=== PATIENT | female | born 1980 | race Caucasian/White ===

== ENCOUNTER 2016-10-24 10:24 | Emergency (ER) | payer OTHER ==
[2016-10-24 11:56] VITALS: BP 133/66
--- NOTE | 2016-10-24 12:04 | UC ---
UC General HPI - HPI Summary HPI Summary: Patient has had continual vaginal bleeding for 3 months, was placed on provera last week to reduce bleeding but her bleeding has increased, is going through a pad an hour and large clots, abdominal pain. is feeling chilled, fatiqued, and lightheaded. VS are stable. - History of Current Complaint Chief Complaint: UCGU Stated Complaint: PERSONAL Time Seen by Provider: 10/24/16 11:49 Hx Obtained From: Patient Onset/Duration: Sudden Onset, Lasting Weeks Timing: Constant Onset Severity: Moderate Current Severity: Severe Pain Intensity: 7 Associated Signs & Symptoms: Positive: Dizziness, Weakness - Allergy/Home Medications Allergies/Adverse Reactions: Allergies Allergy/AdvReac Type Severity Reaction Status Date / Time Sertraline [From Zoloft] Allergy Severe suicidal Verified 10/24/16 11:33 Sulfa Drugs Allergy Severe Anaphylatic Verified 10/24/16 11:33 Shock Bee Venom Allergy Swelling Verified 10/24/16 11:33 Latex Allergy Rash Verified 10/24/16 11:33 Home Medications: Home Medications Gabapentin CAP(*) [Neurontin 100 mg CAP(*)] 200 mg PO BID 10/24/16 [History Confirmed 10/24/16] medroxyPROGESTERone TAB* [Provera TAB*] 1 tab PO DAILY 10/24/16 [History Confirmed 10/24/16] PMH/Surg Hx/FS Hx/Imm Hx Previously Healthy: Yes Endocrine History Of: Denies: Diabetes Cardiovascular History Of: Reports: Cardiac Disorders - Hx heart murmur Denies: Hypertension, Pacemaker/ICD GI/ History Of: Denies: Renal Disease - Surgical History Surgical History: Yes Surgery Procedure, Year, and Place: Ear Tubes, 1979, [employer] [facility] [employer] [facility]. Right ovary removed 2014 - Family History Known Family History: Positive: Hypertension, Diabetes, Other - dyslipidemia father lung CA - Social History Alcohol Use: Rare Substance Use Type: None Smoking Status (MU): Former Smoker Type: Cigarettes Amount Used/How Often: 1/2 PPD Length of Time of Smoking/Using Tobacco: On and Off for 10 Years Have You Smoked in the Last Year: Yes When Did the Patient Quit Smoking/Using Tobacco: 06/2016 - Immunization History Most Recent Influenza Vaccination: May 2014 Review of Systems Skin: Other - dry Eyes: Negative ENT: Negative Respiratory: Negative Cardiovascular: Negative Gastrointestinal: Abdominal Pain Genitourinary: Negative Motor: Negative Neurovascular: Negative Musculoskeletal: Negative Neurological: Headache Psychological: Negative All Other Systems Reviewed And Are Negative: Yes Physical Exam Triage Information Reviewed: Yes Appearance: Ill-Appearing, Pain Distress, Obese Vital Signs: Initial Vital Signs Temp 98.9 F 10/24/16 11:34 Pulse 81 10/24/16 11:34 Resp 16 10/24/16 11:34 BP 133/66 10/24/16 11:34 Pulse Ox 98 10/24/16 11:34 Vital Signs Reviewed: Yes Eye Exam: Normal Eyes: Positive: Conjunctiva Clear ENT: Positive: Normal ENT inspection, Hearing grossly normal, Pharynx normal, TMs normal Dental Exam: Normal Neck exam: Normal Neck: Positive: Supple, Nontender, No Lymphadenopathy Respiratory Exam: Normal Respiratory: Positive: Chest non-tender, Lungs clear, Normal breath sounds Cardiovascular Exam: Normal Cardiovascular: Positive: RRR, No Murmur, Pulses Normal Abdominal Exam: Other - tender over the lower abdomen Abdomen Description: Positive: No Organomegaly, CVA Tenderness (R) - neg, CVA Tenderness (L) - neg Bowel Sounds: Positive: Present Musculoskeletal Exam: Normal Musculoskeletal: Positive: Strength Intact, ROM Intact, No Edema Neurological Exam: Normal Neurological: Positive: Alert, Muscle Tone Normal Psychological Exam: Normal Skin Exam: Normal Course/Dx - Course Course Of Treatment: hx obtained, exam performed, patient will be seen in ER at [facility] - Differential Dx - Multi-Symptom Provider Diagnoses: vaginal bleeding - Physician Notifications Discussed Patient Care With: Reed Meza NP Instructed by Provider To: MD Will See In ED Discharge - Discharge Plan Condition: Stable Disposition: TRANS HIGHER L OF CARE FAC
== END 2016-10-24 12:05 | disposition left against medical advice (07) ==
LOC: UCCORT 10:24
DX: N93.9 Abnormal uterine and vaginal bleeding, unspecified (principal); E66.9 Obesity, unspecified; Z87.891 Personal history of nicotine dependence; Z88.2 Allergy status to sulfonamides; Z88.8 Allergy status to other drugs, medicaments and biological substances
CPT/HCPCS: 99212; G0463

== ENCOUNTER 2017-11-15 15:57 | Emergency (ER) | payer BC, OTHER ==
[2017-11-15 16:13] VITALS: BP 131/67
--- NOTE | 2017-11-15 16:16 | UC ---
General HPI - HPI Summary HPI Summary: pt is c/o "palpitations" since yesterday. she states she gets them when she gets a uti. she denies frequency, urgency and burning with urination but does note some bladder "cramping". no cp, sob. states has seen cardiology for palpitations. she states " i have a valve the gives me extra beats once in a while". no fever, n/v/d. - History of Current Complaint Chief Complaint: UCGeneralIllness Stated Complaint: HEART PALPITATIONS Time Seen by Provider: 11/15/17 16:01 Hx Obtained From: Patient Hx Last Menstrual Period: 10/24/16 Timing: Constant Aggravating: nothing Alleviating: nothing Associated Signs & Symptoms: Negative: Abdominal Pain, Diarrhea, Fever, Nausea, Vomiting - Allergy/Home Medications Allergies/Adverse Reactions: Allergies Allergy/AdvReac Type Severity Reaction Status Date / Time sertraline [From Zoloft] Allergy Severe See Comment Verified 11/15/17 16:14 Sulfa (Sulfonamide Allergy Severe Anaphylatic Verified 11/15/17 16:14 Antibiotics) Shock bee venom protein (honey bee) Allergy Swelling Verified 11/15/17 16:14 latex Allergy Rash Verified 11/15/17 16:14 Home Medications: Home Medications Megestrol TAB* [Megace TAB*] 40 mg TID 11/15/17 [History Confirmed 11/15/17] PMH/Surg Hx/FS Hx/Imm Hx - Additional Past Medical History Additional PMH: PCOS, PALPITATIONS, CHRONIC PAIN Psychological History: Anxiety, Depression - Surgical History Surgical History: Yes Surgery Procedure, Year, and Place: Ear Tubes, 1979, [facility]. Right ovary removed 2014 - Family History Known Family History: Positive: Hypertension, Diabetes, Other - dyslipidemia father lung CA - Social History Alcohol Use: Rare Substance Use Type: None Smoking Status (MU): Former Smoker Type: Cigarettes Amount Used/How Often: 1/2 PPD Length of Time of Smoking/Using Tobacco: On and Off for 10 Years Have You Smoked in the Last Year: Yes When Did the Patient Quit Smoking/Using Tobacco: 06/2016 - Immunization History Most Recent Influenza Vaccination: May 2014 Vaccination Up to Date: Yes Review of Systems Constitutional: Negative Skin: Negative Eyes: Negative ENT: Negative Respiratory: Negative Cardiovascular: Palpitations Gastrointestinal: Other - BLADDER CRAMPS Genitourinary: Negative Motor: Negative Neurovascular: Negative Musculoskeletal: Negative Neurological: Negative Psychological: Negative Is Patient Immunocompromised?: No All Other Systems Reviewed And Are Negative: Yes Physical Exam Triage Information Reviewed: Yes Appearance: Well-Appearing Vital Signs Reviewed: Yes Eyes: Positive: Conjunctiva Clear ENT: Positive: Normal ENT inspection Neck: Positive: Supple, Nontender, No Lymphadenopathy Respiratory: Positive: Lungs clear, Normal breath sounds Cardiovascular: Positive: RRR, No Murmur, Pulses Normal Abdomen Description: Positive: Nontender, No Organomegaly, Soft Bowel Sounds: Positive: Present Musculoskeletal: Positive: No Edema Neurological: Positive: Alert Psychological: Positive: Age Appropriate Behavior Skin Exam: Normal Diagnostics - EKG Cardiac Rate: NL Cardiac Rhythm: Sinus: Normal Ectopy: None ST Segment: Normal Course/Dx - Course Course Of Treatment: EKG=UNREMARKABLE PLUS PT HAS BEEN EVALUATED BY CARDIOLOGY FOR HER PALPITATIONS AND NO TX INDICATED. U/A= IS + FOR LEUKOCYTES, CULTURE IS PENDING. WILL TX FOR PRESUMPTIVE UTI. - Differential Dx - Multi-Symptom Provider Diagnoses: UTI, PALPITATIONS Discharge - Discharge Plan Condition: Stable Disposition: HOME Prescriptions: Nitrofurantoin Macrocrystal [Nitrofurantoin] 100 mg PO BID #10 capsule Patient Education Materials: Heart Palpitations (ED), Urinary Tract Infection in Women (ED) Referrals: Rianna Acuña MD [Primary Care Provider] - 7 Days
== END 2017-11-15 16:34 | disposition home or self-care (01) ==
LOC: UCCORT 15:57
DX: N39.0 Urinary tract infection, site not specified (principal); R00.2 Palpitations; Z88.2 Allergy status to sulfonamides; Z88.8 Allergy status to other drugs, medicaments and biological substances; Z91.030 Bee allergy status; Z91.040 Latex allergy status; Z87.891 Personal history of nicotine dependence
CPT/HCPCS: 81003; 87086; 93005; 99212; G0463

== ENCOUNTER 2018-02-13 19:17 | Emergency (ER) | payer BC ==
[2018-02-13 19:42] VITALS: BP 150/85
--- NOTE | 2018-02-13 19:51 | UC ---
Cardiac HPI - HPI Summary HPI Summary: Pt c/o gradual onset of worsening chest pain/tightness. Pt staes that she has hx of PAC, generalized anxiety disorder and migraones. Pt states she woke with a migraine this morning, took 2 excedrin tablets, drank two cups of coffee and noted that head ache did not improve, and chest pain nad tightness was worsening , which she reports exacerbated her anxiety. Pt then reports she began to feel nauseous. - History of Current Complaint Chief Complaint: UCChestPain Stated Complaint: CHEST PAIN Time Seen by Provider: 02/13/18 19:39 Hx Obtained From: Patient Hx Last Menstrual Period: 10/24/16 Onset/Duration: Gradual Onset, Lasting Hours Initial Severity: Moderate Current Severity: Mild Pain Intensity: 2 Chest Pain Location: Upper Sternal Character: Fluttering, Dull/Aching, Tightness Aggravating Factor(s): Caffeine, Medications Alleviating Factor(s): Medication - gabapentin Associated Signs & Symptoms: Positive: Chest Pain, Anxiety, Headaches, Palpitations Related History: Similar Episode/Dx as - PAC, anxiety and migraine TOLENTINO - Risk Factors Pulmonary Embolism Risk Factors: Smoking Cardiac Risk Factors: Smoking Atrial Fibrillation: Negative TAD Risk Factors: Smoking AMI/ACS Risk Factors: Obesity, Smoking - Allergy/Home Medications Allergies/Adverse Reactions: Allergies Allergy/AdvReac Type Severity Reaction Status Date / Time sertraline [From Zoloft] Allergy Severe See Comment Verified 02/13/18 19:42 Sulfa (Sulfonamide Allergy Severe Anaphylatic Verified 02/13/18 19:42 Antibiotics) Shock bee venom protein (honey bee) Allergy Swelling Verified 02/13/18 19:42 latex Allergy Rash Verified 02/13/18 19:42 Home Medications: Home Medications Aspirin [Aspirin Childrens 81 MG] 81 mg PO DAILY 02/13/18 [History Confirmed ] Aspirin/Acetaminophen/Caffeine [Excedrin Extra Strength Caplet] 2 each PO DAILY 02/13/18 [History Confirmed 02/13/18] PMH/Surg Hx/FS Hx/Imm Hx Previously Healthy: Yes Cardiovascular History: Other - PAC Other Cardiovascular History: PAC Psychological History: Anxiety - Surgical History Surgical History: Yes Surgery Procedure, Year, and Place: Ear Tubes, 1979, [employer] [facility] [employer] [facility]. Right ovary removed 2014 - Family History Known Family History: Positive: Hypertension, Diabetes, Other - dyslipidemia father lung CA - Social History Occupation: Employed Full-time Lives: With Family Alcohol Use: Rare Substance Use Type: None Smoking Status (MU): Former Smoker Type: Cigarettes Amount Used/How Often: 1/2 PPD Length of Time of Smoking/Using Tobacco: On and Off for 10 Years Have You Smoked in the Last Year: Yes When Did the Patient Quit Smoking/Using Tobacco: 06/2016 - Immunization History Most Recent Influenza Vaccination: May 2014 Vaccination Up to Date: Yes Review of Systems Constitutional: Fatigue Skin: Negative Eyes: Negative ENT: Negative Respiratory: Negative Cardiovascular: Palpitations, Chest Pain Gastrointestinal: Negative Genitourinary: Negative Motor: Negative Neurovascular: Negative Musculoskeletal: Negative Neurological: Headache Psychological: Anxious Is Patient Immunocompromised?: No All Other Systems Reviewed And Are Negative: Yes Physical Exam Triage Information Reviewed: Yes Appearance: Well-Appearing, Obese Vital Signs: Initial Vital Signs Temp 98.9 F 02/13/18 19:32 Pulse 82 02/13/18 19:32 Resp 17 02/13/18 19:32 BP 150/85 02/13/18 19:32 Pulse Ox 100 02/13/18 19:32 Vital Signs Reviewed: Yes Eye Exam: Normal ENT Exam: Normal Dental Exam: Normal Neck exam: Normal Respiratory Exam: Normal Respiratory: Positive: Normal breath sounds, No respiratory distress Cardiovascular Exam: Normal Cardiovascular: Positive: RRR Musculoskeletal Exam: Normal Neurological Exam: Normal Psychological Exam: Normal Skin Exam: Normal - Assessment/Plan Course Of Treatment: I discussed with the pt the need to follow up with her PCP and/or direct of real estate as needed. She verbalized understanding and agreed to plan of care. - Differential Diagnoses - Chest Pain Differential Diagnosis/HQI/PQRI: Acute PR, ACS - Differential Diagnoses - Hypertension Differential Diagnosis/HQI PQRI: Angina - Differential Diagnoses - Palpitations Differential Diagnosis/HQI/PQRI: Panic Disorder, Other - migraine - Clinical Impression Provider Diagnoses: Migraine. anxiety exacerbation. chest pain Discharge - Sign-Out/Discharge Documenting (check all that apply): Discharge/Admit/Transfer - Discharge Plan Condition: Stable Disposition: HOME Prescriptions: Ondansetron ODT TAB* [Zofran 4 MG Odt TAB*] 4 mg PO Q6H PRN #20 tab.odt PRN Reason: Nausea Patient Education Materials: Chest Pain (ED), Anxiety (ED) Referrals: Rianna Acuña MD [Primary Care Provider] - If Needed Additional Instructions: Please follow up with your PCP and your direct of real estate as needed. - Billing Disposition and Condition Condition: STABLE Disposition: Home
== END 2018-02-13 19:59 | disposition home or self-care (01) ==
LOC: UCCORT 19:17
DX: R07.9 Chest pain, unspecified (principal); G43.909 Migraine, unspecified, not intractable, without status migrainosus; F41.8 Other specified anxiety disorders
CPT/HCPCS: 93005; 99212; G0463

== ENCOUNTER 2018-07-01 08:20 | Emergency (ER) | payer SELFPAY ==
[2018-07-01 08:40] VITALS: BP 154/79
--- NOTE | 2018-07-01 08:51 | ED ---
Shortness of Breath - HPI Summary HPI Summary: 37 yo WF c/o SOB associated with cough and pleuritic CP x 1 week, started with URI but progressively worsened. - History of Current Complaint Chief Complaint: UCRespiratory Time Seen by Provider: 07/01/18 08:34 Hx Obtained From: Patient Onset/Duration: Gradual Onset, Lasting Days, Still Present, Worse Since Current Severity: Severe Aggrevating Factors: Deep Breaths Associated Signs & Symptoms: Cough (Nonproductive) - Allergy/Home Medications Allergies/Adverse Reactions: Allergies Allergy/AdvReac Type Severity Reaction Status Date / Time sertraline [From Zoloft] Allergy Severe See Comment Verified 07/01/18 08:26 Sulfa (Sulfonamide Allergy Severe Anaphylatic Verified 07/01/18 08:26 Antibiotics) Shock bee venom protein (honey bee) Allergy Swelling Verified 07/01/18 08:26 latex Allergy Rash Verified 07/01/18 08:26 Home Medications: Home Medications Escitalopram Oxalate [Lexapro 20 mg] 20 mg PO DAILY 07/01/18 [History Confirmed 07/01/18] Phenylephrine/Dm/Acetaminop/GG [Mucinex Fast-Max Sev Cold Cplt] 1 tab PO PRN 10/17 [History] Propranolol TAB* [Inderal TAB*] 20 mg PO BID 07/01/18 [History Confirmed ] PMH/Surg Hx/FS Hx/Imm Hx Previously Healthy: Yes Endocrine/Hematology History: Denies: Hx Diabetes Cardiovascular History: Denies: Hx Hypertension, Hx Pacemaker/ICD History: Denies: Hx Renal Disease Sensory History: Denies: Hx Hearing Aid Psychiatric History: Denies: Hx Panic Disorder - Surgical History Surgery Procedure, Year, and Place: Ear Tubes, 1979, [facility] [facility]. Right ovary removed 2014. D&C Infectious Disease History: No Infectious Disease History: Denies: Traveled Outside the [place] in Last 30 Days - Family History Known Family History: Positive: Hypertension, Diabetes, Other - dyslipidemia father lung CA - Social History Alcohol Use: Rare Substance Use Type: Reports: None Smoking Status (MU): Light Every Day Tobacco Smoker Type: eCigarettes Amount Used/How Often: 1/2 PPD Length of Time of Smoking/Using Tobacco: On and Off for 10 Years Have You Smoked in the Last Year: Yes Review of Systems Constitutional: Negative Eyes: Negative ENT: Negative Cardiovascular: Negative Positive: Shortness Of Breath, Cough Gastrointestinal: Negative Genitourinary: Negative Musculoskeletal: Negative Skin: Negative All Other Systems Reviewed And Are Negative: Yes Physical Exam - Summary Physical Exam Summary: Vital Signs Reviewed: Yes Appearance: Positive: Well-Appearing Skin: Positive: Warm Head/Face: Positive: Normal Head/Face Inspection Eyes: Positive: Normal, EOMI, SENG ENT: Positive: Normal ENT inspection Neck: Positive: Supple Respiratory/Lung Sounds: Positive: Coarse BS B/L, faint diffuse wheezing B/B Cardiovascular: Positive: Normal, RRR, S1, S2 Abdomen Vital Signs On Initial Exam: Initial Vitals Temp Pulse Resp BP Pulse Ox 36.6 C 81 24 154/79 94 07/01/18 08:29 07/01/18 08:29 07/01/18 08:29 07/01/18 08:29 07/01/18 08:29 Diagnostics - Vital Signs Vital Signs Temp Pulse Resp BP Pulse Ox 07/01/18 08:29 36.6 C 81 24 154/79 94 - Laboratory Lab Statement: Any lab studies that have been ordered have been reviewed, and results considered in the medical decision making process. Course/Dx - Course Assessment/Plan: CXR - B/L patchy infiltrates with retrocardiac infiltrates. Rpcephin 1g in UC, then PO abx x 7 days - Diagnoses Provider Diagnoses: PNA (pneumonia) Discharge - Sign-Out/Discharge Documenting (check all that apply): Patient Departure All imaging exams completed and their final reports reviewed: Yes - Discharge Plan Condition: Stable Disposition: HOME Prescriptions: Cefuroxime 500 MG(NF) 500 mg PO BID 7 Days #14 tab Patient Education Materials: Pneumonia (ED) Forms: *Work Release Referrals: Rianna Acuña MD [Primary Care Provider] - - Billing Disposition and Condition Condition: STABLE Disposition: Home
--- NOTE | 2018-07-01 08:56 | RAD ---
Indication: Shortness of breath. 2 views of the chest are reviewed. Dual-energy PA views were obtained. Airspace disease in left upper lobe and left base is noted consistent with left upper lobe and left lower lobe pneumonia. No prior chest x-ray is available for review. IMPRESSION: Left upper lobe and left basilar pneumonia is present.
[2018-07-01] MEDS ORDERED: cefTRIAXone VIAL(*) 1,000 MG VIAL IM ONE (10:03)
[2018-07-01] MEDS ORDERED: Lidocaine 1% MPF* 2 ML VIAL INJ ONE (10:04)
== END 2018-07-01 10:48 | disposition home or self-care (01) ==
LOC: UCCORT 08:20
DX: J18.9 Pneumonia, unspecified organism (principal); Z88.1 Allergy status to other antibiotic agents
CPT/HCPCS: 71046; 96372; 99212; G0463; J0696

== ENCOUNTER 2018-11-12 10:31 | Emergency (ER) | payer BC ==
[2018-11-12 11:31] VITALS: BP 142/71
--- NOTE | 2018-11-12 11:51 | UC ---
Respiratory Complaint HPI - HPI Summary HPI Summary: 37 yo female with nasal congestion/post nasal drip and facial pressure x 10 days no f.c no n.v.d no CP or SOB - History of Current Complaint Chief Complaint: UCGeneralIllness Stated Complaint: SINUSES,COUGH Time Seen by Provider: 11/12/18 11:40 Hx Obtained From: Patient Hx Last Menstrual Period: DOES NOT HAVE PERIODS, IS ON MEGACE Onset/Duration: Gradual Onset, Lasting Days Timing: Constant Severity Initially: Mild Severity Currently: Moderate Pain Intensity: 0 Pain Scale Used: 0-10 Numeric Character: Cough: Nonproductive Aggravating Factors: Nothing Alleviating Factors: Nothing Associated Signs And Symptoms: Positive: Nasal Congestion, Hoarseness, Sinus Discomfort - Allergies/Home Medications Allergies/Adverse Reactions: Allergies Allergy/AdvReac Type Severity Reaction Status Date / Time sertraline [From Zoloft] Allergy Severe See Comment Verified 07/01/18 08:26 Sulfa (Sulfonamide Allergy Severe Anaphylatic Verified 07/01/18 08:26 Antibiotics) Shock bee venom protein (honey bee) Allergy Swelling Verified 07/01/18 08:26 latex Allergy Rash Verified 07/01/18 08:26 Home Medications: Home Medications Omeprazole 20 mg PO DAILY 11/12/18 [History Confirmed 11/12/18] PMH/Surg Hx/FS Hx/Imm Hx Previously Healthy: Yes Cardiovascular History: Hypertension Psychological History: Anxiety, Depression - Surgical History Surgical History: Yes Surgery Procedure, Year, and Place: Ear Tubes, 1979, [facility]. Right ovary removed 2014. D&C - Family History Known Family History: Positive: Hypertension, Diabetes, Other - dyslipidemia father lung CA - Social History Alcohol Use: Rare Substance Use Type: None Smoking Status (MU): Light Every Day Tobacco Smoker Type: eCigarettes Amount Used/How Often: 1/2 PPD Length of Time of Smoking/Using Tobacco: On and Off for 10 Years Have You Smoked in the Last Year: Yes When Did the Patient Quit Smoking/Using Tobacco: 06/2016 - Immunization History Most Recent Influenza Vaccination: May 2014 Vaccination Up to Date: Yes Review of Systems All Other Systems Reviewed And Are Negative: Yes Constitutional: Positive: Negative Skin: Positive: Negative Eyes: Positive: Negative ENT: Positive: Nasal Discharge, Sinus Congestion Respiratory: Positive: Cough Cardiovascular: Positive: Negative Gastrointestinal: Positive: Negative Genitourinary: Positive: Negative Motor: Positive: Negative Neurovascular: Positive: Negative Musculoskeletal: Positive: Negative Neurological: Positive: Negative Psychological: Positive: Negative Physical Exam Triage Information Reviewed: Yes Appearance: Well-Appearing, No Pain Distress, Well-Nourished Vital Signs: Initial Vital Signs Temp 97.8 F 11/12/18 11:27 Pulse 82 11/12/18 11:27 Resp 20 11/12/18 11:27 BP 142/71 11/12/18 11:27 Pulse Ox 98 11/12/18 11:27 Vital Signs Reviewed: Yes Eyes: Positive: Conjunctiva Clear ENT: Positive: Hearing grossly normal, Nasal congestion, Nasal drainage, Sinus tenderness. Negative: Tonsillar swelling, Tonsillar exudate, Trismus, Muffled voice, Hoarse voice Neck: Positive: Supple, Nontender, No Lymphadenopathy Respiratory: Positive: Lungs clear, Normal breath sounds, No respiratory distress, No accessory muscle use Cardiovascular: Positive: RRR, No Murmur Musculoskeletal: Positive: ROM Intact, No Edema Neurological: Positive: Alert Psychological Exam: Normal Skin Exam: Normal Respiratory Course/Dx - Differential Dx/Diagnosis Provider Diagnosis: Sinusitis Discharge - Sign-Out/Discharge Documenting (check all that apply): Patient Departure All imaging exams completed and their final reports reviewed: No Studies - Discharge Plan Condition: Stable Disposition: HOME Prescriptions: Amoxicillin/Clavulanate TAB* [Augmentin TAB 875*] 875 mg PO BID #20 tab Fluticasone NASAL SPRAY 50MCG* [Flonase NASAL SPRAY 50MCG*] 2 spray BOTH NARES BID #1 btl Patient Education Materials: Sinusitis (ED) Referrals: HANNA Allred [Primary Care Provider] - 6 Days (if not better) - Billing Disposition and Condition Condition: STABLE Disposition: Home
== END 2018-11-12 11:55 | disposition home or self-care (01) ==
LOC: UCCORT 10:31
DX: J32.9 Chronic sinusitis, unspecified (principal); I10 Essential (primary) hypertension; F17.290 Nicotine dependence, other tobacco product, uncomplicated; Z88.8 Allergy status to other drugs, medicaments and biological substances; Z88.2 Allergy status to sulfonamides; Z91.030 Bee allergy status; Z91.040 Latex allergy status
CPT/HCPCS: 99212; G0463

== ENCOUNTER 2019-01-06 16:35 | Emergency (ER) | payer BC ==
--- OUTSIDE RECORDS SUMMARY | 2019-01-06 17:15 | XMS REPORT | Continuity of Care Document ---
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 Melly Chen MD Primary Care Physician Unavailable Payers Date Identification Numbers Payment Provider Subscriber Policy Number: [id number] Dinora Clement PayID: [id number] [place] [address] Expires: 2018 Policy Number: [id number] Dinora Clement PayID: [id number] [place] [address] Advance Directives Description No Information Available Problems Description No Information Family History Date Family Member(s) Observation Comments Father due to Unknown Causes () Social History Type Date Description Comments Sex Unknown Marital Status Lives With Diet Patient follows no dietary restrictions 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 Hand Dominance Right-handed ADL's/IADL's Dependent with all ADL's Abuse No history of abuse Tobacco Use Start: Unknown End: Quit Unknown Smoking Status Reviewed: 12/29/18 Quit ETOH Use Denies alcohol use Tobacco Use Start: Unknown End: Patient is a former smoker Unknown Recreational Drug Use Denies Drug Use Tattoo/Piercing Tattoo Allergies, Adverse Reactions, Alerts Active Allergies Reaction Severity Comments Date Sulfa Drugs 05/27/2015 Zoloft 05/27/2015 Bee Sting 05/27/2015 Medications Active Medications SIG Qnty Indications Ordering Date Provider Escitalopram Oxalate Escitalopram Oxalate 30tabs Unknown 06/12/2018 20 MG Tabs 20mg Tablets Propranolol HCL Propranolol HCL 10 MG 60tabs Unknown 02/21/2018 10mg Tabs Tablets Cyclobenzaprine HCL Cyclobenzaprine HCL 45tabs Unknown 12/11/2016 10 MG Tabs 10mg Tablets Folic Acid 1 by mouth every day Unknown 800mcg Tablets Megestrol Acetate tid Unknown 40mg Tablets Cephalexin Unknown 500mg Capsules Gabapentin 1 by mouth three Unknown 300mg times a day Capsules Cyclobenzaprine HCL 1 by mouth three Unknown times a day as needed 10mg Tablets muscle spasms Ferrous Fumarate take one pill once Unknown daily with vitamin c 324(106Fe) mg Tablets History Medications Metformin HCL 1 by mouth tid Unknown - Unknown 500mg Tablets Vitamin D3 1 by mouth every day Unknown - 02/07/2016 5000Unit Capsules Vitamin B6 1 by mouth every day Unknown - Unknown 200mg Tablets Vitamin B12 by mouth every day Unknown - Unknown 500mcg Tablets Medications Administered in Office Medication SIG Qnty Indications Ordering Provider Date Depomedrol 40mg/1cc Vera Mondragon MD 12/29/2018 (methylprednisolone acetate) Injection Depomedrol 40mg/1cc Vera Mondragon MD 12/29/2018 (methylprednisolone acetate) Injection Immunizations Description No Information Available Vital Signs Date Vital Result Comment 12/29/2018 8:46am BP Systolic 130 mmHg BP Diastolic 85 mmHg Body Temperature 98.3 F Heart Rate 83 /min Height 69 inches 5'9" Weight 368.00 lb BMI (Body Mass Index) 54.3 kg/m2 BSA (Body Surface Area) 2.68 m2 [place] body weight in kilograms 66 kg O2 % BldC Oximetry 96 % 08/20/2017 1:30pm BP Systolic Sitting Right Arm 122 mmHg BP Diastolic Sitting Right Arm 64 mmHg Heart Rate 76 /min Respiratory Rate 18 /min Height 69.0 inches 5'9" Weight 353.00 lb BMI (Body Mass Index) 52.1 kg/m2 BSA (Body Surface Area) 2.63 m2 [place] body weight in kilograms 66 kg 02/07/2016 8:54am BP Systolic 140 mmHg BP Diastolic 82 mmHg Heart Rate 80 /min Height 69.0 inches 5'9" Weight 363.00 lb BMI (Body Mass Index) 53.6 kg/m2 BSA (Body Surface Area) 2.66 m2 [place] body weight in kilograms 66 kg 05/29/2015 8:53am BP Systolic Sitting Right Arm 144 mmHg BP Diastolic Sitting Right Arm 90 mmHg Heart Rate 76 /min Respiratory Rate 16 /min Height 69 inches 5'9" Weight 390.00 lb BMI (Body Mass Index) 57.6 kg/m2 BSA (Body Surface Area) 2.74 m2 Results Test Date Facility Test Result H/L Range Note Xray 12/29/2018 [facility] - Orthopedic RMP, Knee, RT, < pending> [address] [facility] [address] (2 [phone] view) Lab Report: 07/09/2018 N2N/CCD Import Mean Platelet 9.5 fL 8.9-12.4 CBC Volume Platelet Count 482 10*3/mm3 High 155-360 Mean Corpuscular HGB Conc 31.1 g/dL 30.8-34.3 Mean Corpuscular HGB 26.8 pg 25.9-32.7 Mean Cell Volume 86.3 fL 80.9-99.0 Hematocrit 44.7 % 36.0-46.1 Hemoglobin 13.9 g/dL 11.6-15.8 Red Blood Count 5.18 M/Ul 3.90-5.40 White Blood Count 13.6 10*3/mm3 High 3.1-10.7 Lab Report: 07/07/2018 N2N/CCD Import Gram Stain Rare Gram Pos Respiratory Culture Bacilli Suggestive W/Gram St Of Diptheroids Lab Report: [facility] 07/07/2018 N2N/CCD Import Eos # 0.00 10*3/uL 0.0-0.5 W/Automated Diff Eo% 0.0 % 0.0-6.6 [place] % 5.3 % 4.3-13.2 Lymph % 12.9 % Low 20.0-42.0 Neut% 81.6 % High 40.4-72.8 Mean Platelet Volume 9.4 fL 8.9-12.4 Red Cell Distri Width SD 41.8 fL 3-47 Platelet Count 336 10*3/mm3 155-360 Mean Corpuscular HGB Conc 32.2 g/dL 30.8-34.3 Mean Corpuscular HGB 27.3 pg 25.9-32.7 Mean Cell Volume 84.9 fL 80.9-99.0 Hematocrit 41.0 % 36.0-46.1 Hemoglobin 13.2 g/dL 11.6-15.8 Red Blood Count 4.83 M/Ul 3.90-5.40 White Blood Count 8.2 10*3/mm3 3.1-10.7 Lab Report: Ua RFX 07/06/2018 N2N/CCD Import Urine Leuk Negative Negative Micro Culture II Esterase Urine Nitrite - Dipstick Negative Negative Urine Urobilinogen - Dipstick 0.2 E.U./DL 0.2-1.0 Urine Blood Negative Negative Urine Specific [place] 1.010 1.010-1.030 Urine Ketone Trace High Negative Urine Bilirubin - Dipstick Negative Negative Urine Glucose - Dipstick Negative Negative Urine Color Yellow Yellow Lab Report: CBS 06/24/2018 N2N/CCD Import Hemoglobin 5.0 % 4.0-5.6 W/Diff, CMP, A1c/Hemoglobin.total in Lipid Panel, Blood TSH, A1c TSH (Thyroid Stimulating Horm) 1.72 u[iU]/mL 0.34-5.60 Cholesterol in LDL [Mass/volume] in Serum or Plasma 126 mg/dL HDL Cholesterol 43.9 mg/dL Cholesterol 188 mg/dL Triglycerides 89 mg/dL Egfr 90.1 (?) >60 Egfr Non- 74.5 (?) >60 Ast 11 U/L Low 13-39 Alt 9 U/L 7-52 Alkaline Phosphatase 79 U/L 34-104 Total Bilirubin 0.30 mg/dL 0.2-1.0 Albumin/Globulin Ratio 1.6 1-3 Globulin 2.5 2-4 Albumin 4.0 g/dL 3.2-5.2 Total Protein 6.5 g/dL 6.4-8.9 Calcium 9.2 mg/dL 8.6-10.3 BUN/Creatinine Ratio 21.2 High 8-20 Creatinine 0.85 mg/dL 0.51-0.95 Blood Urea Nitrogen 18 mg/dL 6-24 Co2 Carbon Dioxide 23 mmol/L 22-32 Chloride 109 mmol/L 101-111 Potassium 4.2 mmol/L 3.5-5.0 Sodium 140 mmol/L 135-145 Mean Platelet Volume 7.9 Um3 7.4-10.4 Platelet Count 294 10 3/Ul 150-450 Red Cell Distribution Width 14 % 10.5-15 Mean Corpuscular HGB Conc 33 g/dL 31-36 Mean Corpuscular Hemoglobin 28 pg 27-31 Mean Corpuscular Volume 84 fL 80-97 Hematocrit 45 % 35-47 Hemoglobin 14.9 g/dL 12.0-16.0 Red Blood Count 5.33 10 6/Ul 4.00-5.40 White Blood Count 9.5 10 3/Ul 3.5-10.8 Nocturnal Oximetry 09/03/2017 [facility] Low Oximetry 85 % Low 93-98 [address] [place] [address] [phone] Fio2 21 N 21-100 Heart Rate 96 BPM Duration Of Study 440 MINUTES Total Time Below 88% 0.6 MINUTES Continuous Oximetry 09/02/2017 [facility] Oximetry 98 % N 93-98 [address] [place] [address] [phone] Fio2 21 N 21-100 Heart Rate 116 BPM Patient Status RESTING Office Visit: Ov: uti check 08/27/2017 N2N/CCD Import Urinalysis 1.020 Urinalysis 5.0 Urinalysis negative Urinalysis negative Urinalysis negative Urinalysis negative Urinalysis negative Urinalysis negative Urinalysis negative Urinalysis yellow Serum or plasma 08/12/2017 N2N/CCD Import Serum or plasma 10 Low 15-37 aspartate aspartate aminotransferase aminotransferase measure measurement (enzymatic activity/volume) Serum or plasma 08/12/2017 N2N/CCD Import Serum or plasma 9.0 8.5-10.1 calcium measurement calcium (mass/volume) measurement (mass/volume) Serum or plasma 08/12/2017 N2N/CCD Import Serum or plasma 92 26-192 creatine kinase creatine kinase measurement (enzym measurement (enzymatic activity/volume) Serum or plasma 08/12/2017 N2N/CCD Import Serum or plasma 0.8 0.6-1.3 creatinine creatinine measurement measurement (mass/volum (mass/volume) Serum or plasma 08/12/2017 N2N/CCD Import Serum or plasma 87 74-106 glucose measurement glucose (mass/volume) measurement (mass/volume) Serum or plasma 08/12/2017 N2N/CCD Import Serum or plasma 7.6 6.4-8.2 protein measurement protein (mass/volume) measurement (mass/volume) Serum or plasma 08/12/2017 N2N/CCD Import Serum or plasma 83 45-117 alkaline alkaline phosphatase phosphatase measurement ( measurement (enzymatic activity/volume) Serum or plasma 08/12/2017 N2N/CCD Import Serum or plasma 3.8 3.4-5.0 albumin measurement albumin (mass/volume) measurement (mass/volume) Serum carbon 08/12/2017 N2N/CCD Import Serum carbon 23 21-32 dioxide measurement dioxide measurement RDW RBC Auto-Rto 08/12/2017 N2N/CCD Import RDW RBC Auto-Rto 17.1 High 11.7-14.4 RDW RBC Auto 08/12/2017 N2N/CCD Import RDW RBC Auto 49.2 High 3-47 Prot Ur 08/12/2017 N2N/CCD Import Prot Ur Negative Negative Strip.auto-mCnc Strip.auto-mCnc Potassium 08/12/2017 N2N/CCD Import Potassium 4.0 3.5-5.1 SerPl-sCnc SerPl-sCnc Serum or plasma 08/12/2017 N2N/CCD Import Serum or plasma 0.3 0.2-1.0 total bilirubin total bilirubin measurement (mass/ measurement (mass/volume) Serum or plasma 08/12/2017 N2N/CCD Import Serum or plasma 14 7-18 urea nitrogen urea nitrogen measurement measurement (mass/vo (mass/volume) Serum sodium 08/12/2017 N2N/CCD Import Serum sodium 141 136-145 measurement measurement Specific gravity of 08/12/2017 N2N/CCD Import Specific gravity 1.010 1.010-1.03 Urine by Automated of Urine by 0 test strip Automated test strip Urine appearance 08/12/2017 N2N/CCD Import Urine appearance Clear Clear determination determination Urine glucose 08/12/2017 N2N/CCD Import Urine glucose Negative Negative measurement by measurement by automated test automated test strip strip (mass/volume) Urine hemoglobin 08/12/2017 N2N/CCD Import Urine hemoglobin Large High Negative detection by detection by automated test automated test strip strip Urine total 08/12/2017 N2N/CCD Import Urine total Negative Negative bilirubin detection bilirubin by automated test detection by automated test strip Urobilinogen Ur 08/12/2017 N2N/CCD Import Urobilinogen Ur 0.2 0.2-1.0 Strip-aCnc Strip-aCnc WBC # Bld Auto 08/12/2017 N2N/CCD Import WBC # Bld Auto 10.6 3.1-10.7 pH Ur Strip.auto 08/12/2017 N2N/CCD Import pH Ur Strip.auto 6.5 6.5-7.5 Lab Report: 08/12/2017 N2N/Network Chemistry Import Troponin-I < 0.015 Urinalysis With ng/mL Microscopic, Comprehen SGPT/Alt 15 U/L 12-78 Sgot/Ast 10 U/L Low 15-37 Bilirubin,Total 0.3 mg/dL 0.2-1.0 Alb/Glob 1.0 ratio Globulin 3.8 g/dL 1.9-4.3 Albumin 3.8 g/dL 3.4-5.0 Total Protein 7.6 g/dL 6.4-8.2 Calcium 9.0 mg/dL 8.5-10.1 Carbon Dioxide 23 mmol/L 21-32 Chloride 111 mmol/L High 98-107 Potassium 4.0 mmol/L 3.5-5.1 Sodium 141 mmol/L 136-145 BUN/Creat 17.5 ratio If >60 >60 Glom Filtration Rate, Estimate >60 mL/min >60 Creatinine 0.8 mg/dL 0.6-1.3 BUN 14 mg/dL 7-18 Urine Leuk Esterase Moderate Abnormal Negative Urine Nitrite - Dipstick Negative Negative Urine Urobilinogen - Dipstick 0.2 E.U./DL 0.2-1.0 Urine Blood Large Abnormal Negative Urine Specific [place] 1.010 1.010-1.030 Urine Ketone Negative Negative Urine Bilirubin - Dipstick Negative Negative Urine Glucose - Dipstick Negative Negative Urine Color Yellow Yellow Lab Report: CBS W/Automated 08/12/2017 N2N/Network Chemistry Import Eos # 0.30 10*3/uL 0.0-0.5 Diff Eo% 2.8 % 0.0-6.6 [place] % 7.1 % 4.3-13.2 Lymph % 27.9 % 20.0-42.0 Neut% 61.7 % 40.4-72.8 Mean Platelet Volume 10.1 fL 8.9-12.4 Red Cell Distri Width SD 49.2 fL High 3-47 Platelet Count 358 10*3/mm3 155-360 Mean Corpuscular HGB Conc 32.9 g/dL 30.8-34.3 Mean Corpuscular HGB 25.9 pg 25.9-32.7 Mean Cell Volume 78.8 fL Low 80.9-99.0 Hematocrit 42.3 % 36.0-46.1 Hemoglobin 13.9 g/dL 11.6-15.8 Red Blood Count 5.37 M/Ul 3.90-5.40 White Blood Count 10.6 10*3/mm3 3.1-10.7 Automated blood 08/12/2017 N2N/CCD Import Automated blood 0.05 0.0-0.1 basophil count basophil count (count/volume) (count/volume) Anion Gap 08/12/2017 N2N/CCD Import Anion Gap 7 Low 8-16 SerPl-sCnc SerPl-sCnc Albumin/Glob SerPl 08/12/2017 N2N/CCD Import Albumin/Glob SerPl 1.0 Alt SerPl-cCnc 08/12/2017 N2N/CCD Import Alt SerPl-cCnc 15 12-78 Automated blood 08/12/2017 N2N/CCD Import Automated blood 0.30 0.0-0.5 eosinophil count eosinophil count Automated blood 08/12/2017 N2N/CCD Import Automated blood 42.3 36.0- 46.1 hematocrit (volume hematocrit (volume fraction) fraction) Automated blood 08/12/2017 N2N/CCD Import Automated blood 2.97 1.0-4.0 lymphocyte count lymphocyte count (number/volume) (number/volume) Automated blood 08/12/2017 N2N/CCD Import Automated blood 358 155-360 platelet count platelet count Automated blood 08/12/2017 N2N/CCD Import Automated blood 10.1 8.9-12.4 platelet mean platelet mean volume measurement volume measurement Automated 08/12/2017 N2N/CCD Import Automated 25.9 25.9-32.7 erythrocyte mean erythrocyte mean corpuscular corpuscular hemoglobin hemoglobin (mass per erythrocyte) Automated 08/12/2017 N2N/CCD Import Automated 32.9 30.8-34.3 erythrocyte mean erythrocyte mean corpuscular corpuscular hemoglobin hemoglobin concentration measurement (mass/volume) Automated 08/12/2017 N2N/CCD Import Automated 78.8 Low 80.9-99.0 erythrocyte mean erythrocyte mean corpuscular volume corpuscular volume BUN/Creat SerPl 08/12/2017 N2N/CCD Import BUN/Creat SerPl 17.5 Bacteria detection 08/12/2017 N2N/CCD Import Bacteria detection Moderate High None Seen in urine sediment in urine sediment by light micr by light microscopy Basophils/leuk NFr 08/12/2017 N2N/CCD Import Basophils/leuk NFr 0.5 0.0- 1.1 Bld Auto Bld Auto Blood erythrocytes 08/12/2017 N2N/CCD Import Blood erythrocytes 5.37 3.90-5.40 automated count automated count (number/volume) (number/volume) Blood hemoglobin 08/12/2017 N2N/CCD Import Blood hemoglobin 13.9 11.6- 15.8 measurement measurement (mass/volume) (mass/volume) Blood monocytes 08/12/2017 N2N/CCD Import Blood monocytes 0.76 0.3-0.9 automated count automated count (number/volume) (number/volume) Chloride 08/12/2017 N2N/CCD Import Chloride 111 High 98-107 SerPl-sCnc SerPl-sCnc Color Ur 08/12/2017 N2N/CCD Import Color Ur Yellow Yellow Eosinophil/leuk 08/12/2017 N2N/CCD Import Eosinophil/leuk 2.8 0.0-6.6 NFr Bld Auto NFr Bld Auto Epithelial cells 08/12/2017 N2N/CCD Import Epithelial cells Many None Seen detection in urine detection in urine sediment by li sediment by light microscopy Globulin Ser 08/12/2017 N2N/CCD Import Globulin Ser 3.8 1.9-4.3 Calc-mCnc Calc-mCnc Ketones Ur 08/12/2017 N2N/CCD Import Ketones Ur Negative Negative Strip.auto-mCnc Strip.auto-mCnc Leukocyte esterase 08/12/2017 N2N/CCD Import Leukocyte esterase Moderate High Negative Ur Ql Strip.auto Ur Ql Strip.auto Lymphocytes/leuk 08/12/2017 N2N/CCD Import Lymphocytes/leuk 27.9 20.0- 42.0 NFr Bld Auto NFr Bld Auto Monocytes/leuk NFr 08/12/2017 N2N/CCD Import Monocytes/leuk NFr 7.1 4.3- 13.2 Bld Auto Bld Auto Neutrophils # Bld 08/12/2017 N2N/CCD Import Neutrophils # Bld 6.55 1.8- 7.0 Auto Auto Neutrophils/leuk 08/12/2017 N2N/CCD Import Neutrophils/leuk 61.7 40.4- 72.8 NFr Bld Auto NFr Bld Auto Nitrite Ur Ql 08/12/2017 N2N/CCD Import Nitrite Ur Ql Negative Negative Strip.auto Strip.auto Serum or plasma 08/04/2017 N2N/Network Chemistry Import Serum or plasma 20.4 2.6-24.9 insulin insulin measurement measurement (units/volume) (units/volume) Occupational 05/24/2017 N2N/CCD Import Urinalysis 1.010 Health: [place]: [facility] Urinalysis 5.0 Urinalysis negative Urinalysis negative Urinalysis negative Urinalysis negative Urinalysis negative Urinalysis negative Urinalysis negative Urinalysis yellow Lab Report: 11/24/2016 N2N/Network Chemistry Import Urine Leuk Moderate Abnormal Negative Urinalysis With Esterase Microscopic Urine Nitrite - Dipstick Negative Negative Urine Urobilinogen - Dipstick 0.2 E.U./DL 0.2-1.0 Urine Blood Small Abnormal Negative Urine Specific [place] >=1.030 1.010-1.030 Urine Ketone 15 High Negative Urine Bilirubin - Dipstick Negative Negative Urine Glucose - Dipstick Negative Negative Urine Color Yellow Yellow Lab Report: CBC, Thyroid Stim 11/02/2016 N2N/Network Chemistry Import Prolactin 13.2 ng/ mL Hormone, Prolactin, Thyroid Stim Hormone 1.82 u[iU]/mL 0.30-4.20 Mean Platelet Volume 10.1 fL 8.9-12.4 Platelet Count 370 10*3/mm3 150-400 Mean Corpuscular HGB Conc 29.9 g/dL Low 30.8-34.3 Mean Corpuscular HGB 23.0 pg Low 25.9-32.7 Mean Cell Volume 77.0 fL Low 80.9-99.0 Hematocrit 30.8 % Low 36.0-46.1 Hemoglobin 9.2 g/dL Low 11.6-15.8 Red Blood Count 4.00 M/Ul 3.90-5.40 White Blood Count 9.8 10*3/mm3 3.1-10.7 Lab Report: CBS W/Automated 10/24/2016 N2N/Network Chemistry Import Eos # 0.29 10*3/uL 0.0-0.5 Diff Eo% 2.8 % 0.0-6.6 [place] % 9.1 % 4.3-13.2 Lymph % 24.7 % 20.0-42.0 Neut% 62.9 % 40.4-72.8 Mean Platelet Volume 9.2 fL 8.9-12.4 Red Cell Distri Width SD 39.9 fL 3-47 Platelet Count 377 10*3/mm3 150-400 Mean Corpuscular HGB Conc 31.5 g/dL 30.8-34.3 Mean Corpuscular HGB 24.0 pg Low 25.9-32.7 Mean Cell Volume 76.2 fL Low 80.9-99.0 Hematocrit 33.7 % Low 36.0-46.1 Hemoglobin 10.6 g/dL Low 11.6-15.8 Red Blood Count 4.42 M/Ul 3.90-5.40 White Blood Count 10.4 10*3/mm3 3.1-10.7 Lab Report: 10/24/2016 nivioN/Network Chemistry Import Urine Leuk Negative Negative Urinalysis With Esterase Microscopic Urine Nitrite - Dipstick Negative Negative Urine Urobilinogen - Dipstick 0.2 E.U./DL 0.2-1.0 Urine Blood Large Abnormal Negative Urine Specific [place] >=1.030 1.010-1.030 Urine Ketone Trace High Negative Urine Bilirubin - Dipstick Small Abnormal Negative Urine Glucose - Dipstick Negative Negative Urine Color [place] Yellow Occupational Health: [place]: 05/18/2016 nivioN/Network Chemistry Import Urinalysis 1.020 [facility] Urinalysis 5.0 Urinalysis negative Urinalysis negative Urinalysis negative Urinalysis negative Urinalysis negative Urinalysis negative Urinalysis negative Urinalysis yellow Lab Report: 01/27/2016 nivioN/Network Chemistry Import Urine Amorph Very Few (Negative) Comprehensive Sediment Metabolic Panel, CK, Tro Urine Mucus Small Urine Bacteria Few Urine Uric Acid Crystals Few Urine Epithelial Cells Many Urine RBC 0-2 (0-2) Urine Leuk Esterase Trace High (Negative) Urine Nitrite - Dipstick Negative (Negative) Urine Urobilinogen - Dipstick 0.2 (0.2-1.0) Urine PH 5.5 Low (6.5-7.5) Urine Blood Negative (Negative) Urine Specific [place] 1.020 (1.010-1.030) Urine Ketone Negative mg/dL (Negative) Urine Bilirubin - Dipstick Negative (Negative) Urine Glucose - Dipstick Negative (Negative) Urine Color Yellow (Yellow) Lab Report: CBS W/Automated 04/08/2015 N2N/CCD Import Troponin-I < 0.015 ng /mL Diff, Comprehensive Me CK 41 U/L (26-192) Alkaline Phosphatase 80 U/L (45-117) SGPT/Alt 17 U/L (12-78) Sgot/Ast 9 U/L Low (15-37) Bilirubin,Total 0.2 mg/dL (0.2-1.0) Alb/Glob 0.9 ratio Globulin 3.7 (1.9-4.3) Albumin 3.4 g/dL (3.4-5.0) Total Protein 7.1 g/dL (6.4-8.2) Calcium 8.8 mg/dL (8.5-10.1) Carbon Dioxide 28 mmol/L (21-32) Chloride 107 mmol/L (98-107) Potassium 4.4 mmol/L (3.5-5.1) Sodium 141 mmol/L (136-145) BUN/Creat 14.4 ratio If >60 mL/min (>60) Glom Filtration Rate, Estimate >60 mL/min (>60) Creatinine 0.9 mg/dL (0.6-1.3) BUN 13 mg/dL (7-18) Eos # 0.06 K/uL (0.0-0.5) [place] # 0.93 10*3/mm3 High (0.3-0.9) Lymph # 1.99 10*3/mm3 (1.8-7.0) Neut# 13.03 K/uL High (1.0-7.0) Eo% 0.4 % (0.0-6.6) [place] % 5.8 % (4.3-13.2) Lymph % 12.4 % Low (17.0-46.1) Neut% 81.0 % High (40.4-72.8) Mean Platelet Volume 9.5 fL (8.9-12.4) Red Cell Distri Width %CV 14.7 % High (11.7-14.4) Red Cell Distri Width SD 44.2 fL (3-47) Platelet Count 357 10*3/mm3 (155-360) Mean Corpuscular HGB Conc 32.7 g/dL (30.8-34.3) Mean Corpuscular HGB 27.2 pg (25.9-32.7) Mean Cell Volume 83.0 fL (80.9-99.0) Hematocrit 43.1 % (36.0-46.1) Hemoglobin 14.1 g/dL (11.6-15.8) Red Blood Count 5.19 M/Ul (3.90-5.40) White Blood Count 16.1 10*3/mm3 High (3.1-10.7) Lab Report: Thyroid Stim Hormone, 04/08/2015 N2N/CCD Import Urine Bacteria Few Urinalysis With Urine Epithelial Cells Moderate Urine RBC 10-20 High (0-2) Urine Leuk Esterase Trace High (Negative) Urine Nitrite - Dipstick Negative (Negative) Urine Urobilinogen - Dipstick 0.2 (0.2-1.0) Urine PH 5.5 Low (6.5-7.5) Urine Blood Large High (Negative) Urine Specific [place] >=1.030 (1.010-1.030) Urine Ketone Negative mg/dL (Negative) Urine Bilirubin - Dipstick Small High (Negative) Urine Glucose - Dipstick Negative (Negative) Urine Color [place] (Yellow) Lab Report: Urine 02/08/2015 N2N/CCD Import Mean Platelet 9.4 fL (8.9- 12.4) Screen, CBC Volume Red Cell Distri Width %CV 14.7 % High (11.7-14.4) Platelet Count 267 10*3/mm3 (155-360) Mean Corpuscular HGB Conc 33.1 g/dL (30.8-34.3) Mean Corpuscular HGB 28.0 pg (25.9-32.7) Mean Cell Volume 84.5 fL (80.9-99.0) Hematocrit 39.3 % (36.0-46.1) Hemoglobin 13.0 g/dL (11.6-15.8) Red Blood Count 4.65 M/Ul (3.90-5.40) White Blood Count 10.6 10*3/mm3 (3.1-10.7) Lab Report: L Ovarian Cyst 02/08/2015 N2N/CCD Import Gram Stain See Note Fluid--no growth, final Lab Report: Comprehensive 01/17/2015 N2N/CCD Import Estrogen,Total 149 pg/ mL (.) Metabolic Panel, TSH Ref Cortisol,Random 9.6 Not Estab. Ug/DL Eos # 0.51 K/uL High (0.0-0.5) [place] # 0.77 10*3/mm3 (0.3-0.9) Lymph # 2.01 10*3/mm3 (1.8-7.0) Neut# 7.39 K/uL High (1.0-7.0) Eo% 4.7 % (0.0-6.6) [place] % 7.2 % (4.3-13.2) Lymph % 18.7 % (17.0-46.1) Neut% 68.7 % (40.4-72.8) Mean Platelet Volume 9.4 fL (8.9-12.4) Red Cell Distri Width %CV 15.2 % High (11.7-14.4) Red Cell Distri Width SD 46.6 fL (3-47) Platelet Count 297 10*3/mm3 (155-360) Mean Corpuscular HGB Conc 32.9 g/dL (30.8-34.3) Mean Corpuscular HGB 27.8 pg (25.9-32.7) Mean Cell Volume 84.5 fL (80.9-99.0) Hematocrit 42.5 % (36.0-46.1) Hemoglobin 14.0 g/dL (11.6-15.8) Red Blood Count 5.03 M/Ul (3.90-5.40) White Blood Count 10.8 10*3/mm3 High (3.1-10.7) FSH 6.3 m[iU]/mL Thyroid Stim Hormone 2.37 u[iU]/mL (0.36-3.74) Alkaline Phosphatase 87 U/L (45-117) SGPT/Alt 15 U/L (12-78) Sgot/Ast 8 U/L Low (15-37) Bilirubin,Total 0.4 mg/dL (0.2-1.0) Alb/Glob 1.0 ratio Globulin 3.6 (1.9-4.3) Albumin 3.5 g/dL (3.4-5.0) Total Protein 7.1 g/dL (6.4-8.2) Calcium 8.4 mg/dL Low (8.5-10.1) Carbon Dioxide 26 mmol/L (21-32) Chloride 109 mmol/L High (98-107) Potassium 4.0 mmol/L (3.5-5.1) Sodium 141 mmol/L (136-145) BUN/Creat 18.7 ratio If >60 mL/min (>60) Glom Filtration Rate, Estimate >60 mL/min (>60) Creatinine 0.8 mg/dL (0.6-1.3) BUN 15 mg/dL (7-18) Lab Report: Urine HCG 01/15/2015 N2N/Network Chemistry Import Urine Bacteria Few (Qualitative), Urinalysis Wi Urine Epithelial Cells Few Urine RBC >50 High (0-2) Urine Leuk Esterase Negative (Negative) Urine Nitrite - Dipstick Negative (Negative) Urine Urobilinogen - Dipstick 1.0 (0.2-1.0) Urine PH 7.0 (6.5-7.5) Urine Blood Large High (Negative) Urine Specific [place] 1.015 (1.010-1.030) Urine Ketone Trace mg/dL High (Negative) Urine Bilirubin - Dipstick Negative (Negative) Urine Glucose - Dipstick Negative (Negative) Urine Color Yellow (Yellow) Lab Report: Cea, 12/11/2013 N2N/Network Chemistry Import Cancer Antigen 14.4 U/mL (0.0 -34.0) HCG, Quant, Afp (CA) 125 Tumor Marker,Seru Cea 0.7 ng/mL (0.0-5.0) Lab Report: 10/13/2013 N2N/Network Chemistry Import Dehydroepiandrosterone 1.993 Units CBC, CMP, Sulfate ug/mL converted. TSH, HCG, See lab Quant, FSH, Prolac Prolactin 17.4 ng/mL (3.24-29.12) FSH 4.3 m[iU]/mL Thyroid Stim Hormone 3.76 u[iU]/mL (0.49-4.67) Alkaline Phosphatase 97 U/L (50-136) SGPT/Alt 16 U/L Low (30-65) Sgot/Ast 6 U/L Low (16-40) Bilirubin,Total 0.2 mg/dL (0.2-1.2) Alb/Glob 1.5 ratio Globulin 2.3 (1.9-4.3) Albumin 3.5 g/dL (3.5-5.0) Total Protein 5.8 g/dL Low (6.3-8.0) Calcium 8.9 mg/dL (8.5-10.1) Carbon Dioxide 25 mEq/L (18-29) Chloride 108 mmol/L High (98-107) Potassium 4.2 mmol/L (3.5-5.1) Sodium 140 mmol/L (136-145) BUN/Creat 21.2 ratio If >60 mL/min (>60) Glom Filtration Rate, Estimate >60 mL/min (>60) Creatinine 0.8 mg/dL (0.5-1.4) BUN 17 mg/dL (5-23) Mean Platelet Volume 9.8 fL (8.9-12.4) Red Cell Distri Width %CV 14.3 % (11.7-14.4) Platelet Count 341 10*3/mm3 (155-360) Mean Corpuscular HGB Conc 32.4 g/dL (30.8-34.3) Mean Corpuscular HGB 26.8 pg (25.9-32.7) Mean Cell Volume 82.9 fL (80.9-99.0) Hematocrit 40.8 % (36.0-46.1) Hemoglobin 13.2 g/dL (11.6-15.8) Red Blood Count 4.92 M/Ul (3.90-5.40) White Blood Count 8.6 10*3/mm3 (3.1-10.7) Lab Report: [facility] 12/04/2010 N2N/CCD Import Chemistry 16.7 ng/mL Low (32.0- 100.0) W/Diff, Serum Iron, Vitamin B12 An Chemistry 1.08 ng/dL (0.71-1.85) Chemistry 2.52 u[iU]/mL (0.49-4.67) Chemistry 15.5 NG/ML High (6.0-15.4) Chemistry 841 pg/mL (208-964) Chemistry 29 g/dL (25-156) Chemistry 43.0 fL (3-47) Hematology 0.28 K/uL (0.0-0.5) Hematology 0.81 10*3/mm3 (0.3-0.9) Hematology 2.43 10*3/mm3 (0.8-3.4) Chemistry 6.98 K/uL (1.0-7.0) Hematology 2.7 % (0.0-6.6) Hematology 7.7 % (4.3-13.2) Hematology 23.0 % (17.0-46.1) Hematology 66.0 % (40.4-72.8) Hematology 10.0 fL (8.9-12.4) Hematology 14.9 % High (11.7-14.4) Hematology 338 10*3/mm3 (155-360) Hematology 32.9 g/dL (30.8-34.3) Hematology 26.0 pg (25.9-32.7) Hematology 79.0 fL Low (80.9-99.0) Hematology 41.3 % (36.0-46.1) Hematology 13.6 g/dL (11.6-15.8) Hematology 5.23 M/Ul (3.90-5.40) Hematology 10.6 10*3/mm3 (3.1-10.7) 1 R06.83 SNORING Procedures Date Code Description Status 12/29/2018 71855 Radiology, Knee 3 Views Completed 08/20/2017 35399 EKG-Tracing And Report Completed 05/31/2015 81442 Echocardiogram Complete Completed 05/29/2015 82965 EKG-Tracing And Report Completed 02/08/2015 66371 Anesthesia, Lower Abdomen Surgery Not Otherwise Spec Completed Encounters Type Date Location Provider Dx Diagnosis Office Visit 08/20/2017 Cardiology Office Cody Sarabia I49.1 Atrial premature 1:20p GUSTAVO Lamb depolarization E66.9 Obesity, unspecified I10 Essential (primary) hypertension R06.83 Snoring Office Visit 02/07/2016 9:00a Family Medicine Jasmyn Baca, E28.2 Polycystic ovarian [place] [facility] syndrome E66.9 Obesity, unspecified 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
[2019-01-06 17:31] VITALS: BP 138/74
--- NOTE | 2019-01-06 18:26 | UC ---
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 POST NASAL DRIP. NOW HAS A "BARKEY" MAINLY NON-PRODUCTIVE COUGH. COUGH IS WORSE AT NIGHT. NO CHILLS , FEVER, BODYACHES. C/O HEADACHES WHEN SHE COUGHS A LOT." + tight cough. no asthma or Fhx. has had pneumonia, doesnt feel like it in the past. used alb and pred then. sinus pain on/off x 1 wk, none now. -has been exposed to many illnesses at work bc they are not allwoed to call in sick - History of Current Complaint Chief Complaint: UCRespiratory Stated Complaint: SINUSES, COUGH Time Seen by Provider: 01/06/19 18:24 Hx Last Menstrual Period: 12/15/17 Pain Intensity: 0 - Allergies/Home Medications Allergies/Adverse Reactions: Allergies Allergy/AdvReac Type Severity Reaction Status Date / Time sertraline [From Zoloft] Allergy Severe See Comment Verified 01/06/19 17:19 Sulfa (Sulfonamide Allergy Severe Anaphylatic Verified 01/06/19 17:19 Antibiotics) Shock bee venom protein (honey bee) Allergy Swelling Verified 01/06/19 17:19 latex Allergy Rash Verified 01/06/19 17:19 PMH/Surg Hx/FS Hx/Imm Hx Previously Healthy: Yes - Surgical History Surgical History: Yes Surgery Procedure, Year, and Place: Ear Tubes, 1979, [facility] [employer]. Right ovary removed AND A D&C- 2014. D&C - Family History Known Family History: Positive: Hypertension, Diabetes, Other - dyslipidemia father lung CA Negative: Respiratory Disease - no asthma - Social History Alcohol Use: Rare Substance Use Type: None Smoking Status (MU): Light Every Day Tobacco Smoker Type: eCigrayne Amount Used/How Often: 1/2 PPD Length of Time of Smoking/Using Tobacco: On and Off for 10 Years Have You Smoked in the Last Year: Yes When Did the Patient Quit Smoking/Using Tobacco: 06/2016 - Immunization History Most Recent Influenza Vaccination: May 2014 Vaccination Up to Date: Yes Review of Systems All Other Systems Reviewed And Are Negative: Yes Constitutional: Positive: Fatigue. Negative: Fever Skin: Positive: Negative. Negative: Rash Eyes: Positive: Negative ENT: Positive: Sore Throat - mild now, Sinus Pain/Tenderness. Negative: Ear Ache Respiratory: Positive: Cough, Other - + wheezing Cardiovascular: Positive: Negative Gastrointestinal: Positive: Negative Genitourinary: Positive: Negative Motor: Positive: Negative Neurovascular: Positive: Negative Musculoskeletal: Positive: Negative Neurological: Positive: Negative Psychological: Positive: Negative Is Patient Immunocompromised?: No Physical Exam Triage Information Reviewed: Yes Appearance: Well-Appearing, No Pain Distress, Well-Nourished - + raspy voice, loud cough Vital Signs: Initial Vital Signs Temp 99 F 01/06/19 17:21 Pulse 72 01/06/19 17:21 Resp 18 01/06/19 17:21 BP 138/74 01/06/19 17:21 Pulse Ox 97 01/06/19 17:21 Vital Signs Reviewed: Yes Eye Exam: Normal ENT: Positive: Pharyngeal erythema - mild w/ PND, TMs normal, Uvula midline. Negative: Nasal congestion, Nasal drainage, Tonsillar swelling, Tonsillar exudate, Sinus tenderness Neck exam: Normal Neck: Positive: Supple, Nontender, No Lymphadenopathy Respiratory: Positive: No respiratory distress, No accessory muscle use, Decreased breath sounds, Rhonchi - loud insp/exp throughout, Wheezing. Negative : Crackles, Stridor Cardiovascular Exam: Normal Cardiovascular: Positive: RRR, No Murmur Abdominal Exam: Normal Abdomen Description: Positive: Nontender, Soft Musculoskeletal Exam: Normal Neurological Exam: Normal Skin Exam: Normal Re-Evaluation - Re-Evaluation First Eval Re-Evaluation Time: 19:35 - improved breath sounds. resolved rhonchi, but mild- mod exp wheezing, none on inspiration. Change: Improved Respiratory Course/Dx - Course Course Of Treatment: CXR today - NAD by my interprestation. -understand eval by me, not a RAD. official read tomorrow -alb neb treatment here tonight provides signifcnat relief. able to take a depaer breath w/o coughing. - Differential Dx/Diagnosis Differential Diagnosis/HQI/PQRI: Asthma, Bronchitis, Lower Resp Infection, Sinusitis Provider Diagnosis: Bronchitis Discharge - Sign-Out/Discharge Documenting (check all that apply): Patient Departure All imaging exams completed and their final reports reviewed: No - Discharge Plan Condition: Stable Disposition: HOME Prescriptions: Albuterol HFA INHALER* [Ventolin HFA Inhaler*] 2 puff INH Q4H PRN 14 Days #1 mdi PRN Reason: Cough predniSONE [Prednisone 20 MG TAB] 40 mg PO DAILY 5 Days #10 tablet Patient Education Materials: Acute Bronchitis (ED) Referrals: HANNA Allred [Primary Care Provider] - Additional Instructions: There is no evidence for bacterial infection. The chest xray is negative by my interpretation, however it will officially be read and a final report will be issued in the morning. If there is a discrepancy, you should get a call from staff tomorrow. Regulatory Assistant you can always call for the results as well. Your primary care doctor should be able to request the results for review. You should go to the emergency room if you developed fevers, chills or worsening cough or any shortness of breath. - Billing Disposition and Condition Condition: STABLE Disposition: Home
[2019-01-06] MEDS ORDERED: Albuterol 2.5 MG/3 ML NEB.SOL* (0.083%) INH ONE (18:51)
--- NOTE | 2019-01-07 08:43 | UC ---
- Progress Note Progress Note: Radiologist reading of chest x-ray from January 06, 2019 is interpreted as no acute disease process. Provider interpretation is the same of the same date therefore there is no discrepancy. Course/Dx - Diagnoses Provider Diagnoses: Bronchitis Discharge - Sign-Out/Discharge Documenting (check all that apply): Patient Departure All imaging exams completed and their final reports reviewed: Yes - Discharge Plan Condition: Stable Disposition: HOME Prescriptions: Albuterol HFA INHALER* [Ventolin HFA Inhaler*] 2 puff INH Q4H PRN 14 Days #1 mdi PRN Reason: Cough predniSONE [Prednisone 20 MG TAB] 40 mg PO DAILY 5 Days #10 tablet Patient Education Materials: Acute Bronchitis (ED) Referrals: HANNA Allred [Primary Care Provider] - Additional Instructions: There is no evidence for bacterial infection. The chest xray is negative by my interpretation, however it will officially be read and a final report will be issued in the morning. If there is a discrepancy, you should get a call from staff tomorrow. [employer] Underwriter you can always call for the results as well. Your primary care doctor should be able to request the results for review. You should go to the emergency room if you developed fevers, chills or worsening cough or any shortness of breath. - Billing Disposition and Condition Condition: STABLE Disposition: Home
== END 2019-01-06 19:49 | disposition home or self-care (01) ==
LOC: UCCORT 16:35
DX: J40 Bronchitis, not specified as acute or chronic (principal); R09.81 Nasal congestion; F17.210 Nicotine dependence, cigarettes, uncomplicated; Z88.2 Allergy status to sulfonamides; Z88.8 Allergy status to other drugs, medicaments and biological substances; Z91.030 Bee allergy status; Z91.040 Latex allergy status
CPT/HCPCS: 71046; 99212; G0463

== ENCOUNTER 2019-05-11 15:12 | Emergency (ER) | payer BC ==
[2019-05-11 15:37] VITALS: BP 111/67
--- NOTE | 2019-05-11 16:02 | ED ---
Throat Pain/Nasal Congestion - HPI Summary HPI Summary: 38 yr old female with the complaint of sore throat. Onset over the past few days, and no runny nose or coughing. She went to her primary care doctor and had a negative rapid strep today. She denies fever, trouble swallowing. She denies drooling. - History of Current Complaint Chief Complaint: UCGeneralIllness Time Seen by Provider: 05/11/19 15:43 - Allergies/Home Medications Allergies/Adverse Reactions: Allergies Allergy/AdvReac Type Severity Reaction Status Date / Time sertraline [From Zoloft] Allergy Severe See Comment Verified 05/11/19 15:37 Sulfa (Sulfonamide Allergy Severe Anaphylatic Verified 05/11/19 15:37 Antibiotics) Shock bee venom protein (honey bee) Allergy Swelling Verified 05/11/19 15:37 latex Allergy Rash Verified 05/11/19 15:37 Home Medications: Home Medications Calcium Citrate TAB* [Citracal TAB*] 2 tab PO DAILY 05/11/19 [History Confirmed 05/11/19] Cyclobenzaprine TAB* [Flexeril 10 MG TAB*] 10 mg PO TID PRN 05/11/19 [History Confirmed 05/11/19] Ferrous Sulfate TAB* 325 mg PO DAILY 05/11/19 [History Confirmed 05/11/19] Multivitamins/Minerals TAB* [Theragran/minerals TAB*] 2 tab PO DAILY 05/11/19 [ History Confirmed 05/11/19] PMH/Surg Hx/FS Hx/Imm Hx Previously Healthy: Yes Endocrine/Hematology History: Denies: Hx Diabetes Cardiovascular History: Denies: Hx Hypertension, Hx Pacemaker/ICD History: Denies: Hx Renal Disease Sensory History: Denies: Hx Hearing Aid Psychiatric History: Denies: Hx Panic Disorder - Surgical History Surgery Procedure, Year, and Place: Ear Tubes, 1979, [employer]. Right ovary removed AND A D&C- 2014. D&C. bariactric surg 03/30/19 [facility] Infectious Disease History: No Infectious Disease History: Denies: Traveled Outside the [place] in Last 30 Days - Family History Known Family History: Positive: Hypertension, Diabetes, Other - dyslipidemia father lung CA Negative: Respiratory Disease - no asthma - Social History Alcohol Use: Rare Substance Use Type: Reports: None Smoking Status (MU): Former Smoker Type: eCigarettes Amount Used/How Often: vapes now, zero nicotine Length of Time of Smoking/Using Tobacco: On and Off for 10 Years Have You Smoked in the Last Year: Yes Review of Systems Constitutional: Negative Positive: Sore Throat All Other Systems Reviewed And Are Negative: Yes Physical Exam Triage Information Reviewed: Yes Vital Signs On Initial Exam: Initial Vitals Temp Pulse Resp BP Pulse Ox 98.4 F 66 17 111/67 99 05/11/19 15:33 05/11/19 15:33 05/11/19 15:33 05/11/19 15:33 05/11/19 15:33 Vital Signs Reviewed: Yes Appearance: Positive: Well-Appearing, No Pain Distress Skin: Positive: Warm, Skin Color Reflects Adequate Perfusion Head/Face: Positive: Normal Head/Face Inspection Eyes: Positive: EOMI ENT: Positive: Pharyngeal erythema Neck: Positive: Nontender Respiratory/Lung Sounds: Positive: Clear to Auscultation, Breath Sounds Present Cardiovascular: Positive: RRR. Negative: Murmur Abdomen Description: Negative: Distended Musculoskeletal: Positive: Strength/ROM Intact Neurological: Positive: Sensory/Motor Intact, Alert, Oriented to Person Place, Time, CN Intact II-III, Speech Normal Psychiatric: Positive: Normal Diagnostics - Vital Signs Vital Signs Temp Pulse Resp BP Pulse Ox 05/11/19 15:33 98.4 F 66 17 111/67 99 - Laboratory Lab Results: Lab Results 05/11/19 Range/Units 15:50 Group A Strep Rapid Negative (Negative) Lab Statement: Any lab studies that have been ordered have been reviewed, and results considered in the medical decision making process. EENT Course/Dx - Course Course Of Treatment: 38 yr old with phayrngitis. DC home. Neg rapid strep. - Diagnoses Provider Diagnoses: Pharyngitis Discharge ED - Sign-Out/Discharge Documenting (check all that apply): Patient Departure All imaging exams completed and their final reports reviewed: No Studies - Discharge Plan Condition: Good Disposition: HOME Patient Education Materials: Pharyngitis (ED) Referrals: Melly Chen MD [Primary Care Provider] - 1 Day - Billing Disposition and Condition Condition: GOOD Disposition: Home
== END 2019-05-11 16:10 | disposition home or self-care (01) ==
LOC: UCCORT 15:12
DX: J02.9 Acute pharyngitis, unspecified (principal); Z88.2 Allergy status to sulfonamides; Z88.8 Allergy status to other drugs, medicaments and biological substances; Z91.030 Bee allergy status; Z91.040 Latex allergy status; Z87.891 Personal history of nicotine dependence
CPT/HCPCS: 87651; 99211; G0463